=== PATIENT | male | born 1965 | race Caucasian/White ===

== ENCOUNTER 2018-12-29 22:04 | Emergency (ER) | payer OTHER ==
[~2018-12-29] VITALS: Ht 170.2 cm; Wt 99.8 kg
[2018-12-29] MEDS ORDERED: ONDANSETRON ODT 4 MG PO ONE (22:30)
[2018-12-29] MEDS ORDERED: MECLIZINE 25 MG TABLET PO ONE (22:30)
[2018-12-29] MEDS ORDERED: MECLIZINE CHEWABLE 25 MG TAB ONE (22:35)
[2018-12-29] MEDS ORDERED: ONDANSETRON ODT 4 MG ONE (22:35)
--- NOTE | 2018-12-29 22:40 | NUR ---
PT ARRIVES TO ED WITH C/O OF NAUSEA WITH DIZZYNESS. PT REPORTS THAT WHILE AT WORK HE WAS HAVING EPISODES OF NAUSE WITH DIZZY SPELLS SO HE DECIDED TO GO HOME EARLY. PT REPORTS NO SIGNIFICANT MEDICAL PROBLEMS AND THESE SYMPTOMS ARE NEW TO HIM. PT CONNECTED TO ALL MONITORS AND CALL LIGHT IN REACH. AWAITING FURTHER ORDERS.
[2018-12-29 23:16] LABS: BASOPHILS # (AUTO) 0.01 x10^3/uL (0-0.1); BASOPHILS % (AUTO) 0 % (0-1); EOSINOPHILS # (AUTO) 0.19 x10^3/uL (0-0.4); EOSINOPHILS % (AUTO) 2 % (1-7); LYMPHOCYTES # (AUTO) 0.48 x10^3/uL (1-3.4); LYMPHOCYTES % (AUTO) 6 % (22-44); MD NO; MEAN CORPUSCULAR HGB CONC 34.9 g/dL (33.2-36.2); MEAN CORPUSCULAR VOLUME 91.7 fL (81-97); MEAN PLATELET VOLUME 7.6 fL (7.4-10.4); MONOCYTES % (AUTO) 4 % (2-9); NEUTROPHILS # (AUTO) 7.41 x10^3/uL (1.8-6.8); NEUTROPHILS % (AUTO) 88 % (42-75); PLATELET COUNT 212 x10^3/uL (130-400); RED BLOOD COUNT 5.11 x10^6/uL (4.38-5.82); RED CELL DISTRIBUTION WIDTH 13.1 % (9.4-14.8)
[2018-12-29 23:24] LABS: ALANINE AMINOTRANSFERASE 52 U/L (12-78); ANION GAP 7 mmol/L (5-15); CALCIUM 8.3 mg/dL (8.5-10.1); CHLORIDE 108 mmol/L (98-107); CREATININE 1.03 mg/dL (0.7-1.3)
[2018-12-29 23:28] LABS: ALKALINE PHOSPHATASE 101 U/L (45-117); BILIRUBIN,TOTAL 0.7 mg/dL (0.2-1.0); TOTAL PROTEIN 7.7 g/dL (6.4-8.2); TROPONIN I < 0.015 ng/mL (0.000-0.045)
--- NOTE | 2018-12-30 00:10 | NUR ---
Report to Fatou MCKINLEY and Terri MCKINLEY
[2018-12-30 00:44] VITALS: BP 124/75
== END 2018-12-30 00:47 | disposition home or self-care (01) ==
LOC: ED 23:59
DX: R42 Dizziness and giddiness (principal); I10 Essential (primary) hypertension
CPT/HCPCS: 36415; 70450; 71046; 80053; 83880; 84484; 85025; 93005; 99284; Q0162